=== PATIENT | female | born 1950 | race Hispanic/Latino ===

== ENCOUNTER 2018-02-18 13:58 | Observation (INO) | payer BC, MEDICARE ==
[2018-02-18 13:58] VITALS: BMI 28.3
[2018-02-18] MEDS ORDERED: Sodium Chloride 0.9% 1,000 ML IV ONE (14:28)
--- NOTE | 2018-02-18 14:51 | ED PDOC ---
Arrival/HPI - General Chief Complaint: Dizziness/Lightheaded Time Seen by Provider: 02/18/18 14:15 Historian: Patient - History of Present Illness Narrative History of Present Illness (Text): 02/18/18 14:49 67yo female with PMHx of hypertension who present with complaint of positional dizziness since this morning. Notes that the dizziness is when she moves her head laterally. she denies previous history. Denies tinnitus, headache, URI symptoms, focal weakness, chest pain, visual changes, abdominal pain, any other complaint. Past Medical History - Provider Review Nursing Documentation Reviewed: Yes - Infectious Disease Hx of Infectious Diseases: None - Tetanus Immunization Tetanus Immunization: Unknown - Cardiac Hx Hypertension: Yes - Pulmonary Hx Respiratory Disorders: No - Neurological Hx Neurological Disorder: No - HEENT Hx HEENT Disorder: No - Renal Hx Renal Disorder: Yes (blockage in kidney opened by balloon) Hx Kidney Stones: Yes - Hematological/Oncological Hx Blood Transfusions: No - Musculoskeletal/Rheumatological Hx Musculoskeletal Disorders: No - Gastrointestinal Hx Constipation: Yes Hx Irritable Bowel: Yes - Genitourinary/Gynecological Hx Genitourinary Disorders: No - Psychiatric Hx Anxiety: Yes Hx Depression: Yes Hx Substance Use: No - Anesthesia Hx Anesthesia: Yes Hx Anesthesia Reactions: No Hx Malignant Hyperthermia: No - Suicidal Assessment Feels Threatened In Home Enviroment: No Family/Social History - Physician Review Nursing Documentation Reviewed: Yes Family/Social History: Unknown Family HX Smoking Status: Never Smoked Hx Alcohol Use: Yes (SOCIALLY) Frequency of alcohol use: Socially Hx Substance Use: No Allergies/Home Meds Allergies/Adverse Reactions: Allergies No Known Allergies Allergy (Verified 02/18/18 14:11) Home Medications: Home Meds Medication Instructions Recorded Confirmed Alprazolam [Xanax Xr] 0.5 mg PO HS 11/26/14 02/18/18 Amitriptyline Hydrochloride 100 mg PO HS 11/26/14 02/18/18 [Elavil] Furosemide [Lasix] 40 mg PO QAM 11/26/14 02/18/18 Lubiprostone [Amitiza] 24 mcg PO BID 11/26/14 02/18/18 Metoprolol Tartrate [Lopressor] 100 mg PO DAILY 11/26/14 02/18/18 NIFEdipine ER [Nifedipine ER] 120 mg PO QAM 11/26/14 02/18/18 Potassium Chloride [K-Dur 20] 20 meq PO QAM 11/26/14 02/18/18 buPROPion SR [Wellbutrin SR] 150 mg PO QAM 11/26/14 02/18/18 clonazePAM [clonAZEPAM] 0.5 mg PO PRN PRN 11/26/14 02/18/18 Atorvastatin [Lipitor] 10 mg PO DAILY 09/29/17 02/18/18 Ranitidine HCl [Zantac] 150 mg PO PRN PRN 09/29/17 02/18/18 Review of Systems - Physician Review All systems were reviewed & negative as marked: Yes - Review of Systems Constitutional: Normal Eyes: Normal ENT: Normal Respiratory: Normal Cardiovascular: Normal Gastrointestinal: Normal Genitourinary Female: Normal Musculoskeletal: Normal Skin: Normal Neurological: Dizziness. absent: Headache, Focal Weakness, Speech Changes, Facial Droop Endocrine: Normal Hemo/Lymphatic: Normal Psychiatric: Normal Physical Exam Vital Signs Reviewed: Yes Vital Signs Temp Pulse Resp BP Pulse Ox 02/18/18 18:05 72 18 122/78 99 02/18/18 15:58 78 18 122/78 98 02/18/18 14:05 98.7 F 79 18 106/70 98 Temperature: Afebrile Blood Pressure: Normal Pulse: Regular Respiratory Rate: Normal Appearance: Positive for: Well-Appearing, Non-Toxic, Comfortable Pain Distress: None Mental Status: Positive for: Alert and Oriented X 3 - Systems Exam Head: Present: Atraumatic, Normocephalic Pupils: Present: PERRL Extroacular Muscles: Present: EOMI Conjunctiva: Present: Normal Mouth: Present: Moist Mucous Membranes Neck: Present: Normal Range of Motion Respiratory/Chest: Present: Clear to Auscultation, Good Air Exchange. No: Respiratory Distress, Accessory Muscle Use Cardiovascular: Present: Regular Rate and Rhythm, Normal S1, S2. No: Murmurs Abdomen: No: Tenderness, Distention, Peritoneal Signs Back: Present: Normal Inspection Upper Extremity: Present: Normal Inspection. No: Cyanosis, Edema Lower Extremity: Present: Normal Inspection. No: Edema Neurological: Present: GCS=15, CN II-XII Intact, Speech Normal, Motor Func Grossly Intact, Normal Sensory Function, Normal Cerebellar Funct, Norm Deep Tendon Reflexes, Gait Normal, Memory Normal, Normal 2Pt Descrimination, Other ( No focal neurological deficit) Skin: Present: Warm, Dry, Normal Color. No: Rashes Psychiatric: Present: Alert, Oriented x 3, Normal Insight, Normal Concentration Medical Decision Making ED Course and Treatment: 02/18/18 18:38 PT present to ED for stated history. She was neurologically intact. she was not orthostatic. Lab was unremarkable. she was treated with Rocephin for UTI. She was hydrated in ED. PT continued to complain of dizziness after medication was given. Head CT - negative EKG NSR @72bpm. NSTEMI She was placed on OBS for further evaluation Result and plan was DW the pt and she agreed Case was ANN Harris and pt was placed on her service. - Lab Interpretations Lab Results: 02/18/18 14:30 02/18/18 14:30 Lab Results 02/18/18 15:55: Urine Color Yellow, Urine Appearance Clear, Urine pH 7.5, Ur Specific [place] 1.015, Urine Protein Negative, Urine Glucose (UA) Negative, Urine Ketones Negative, Urine Blood Negative, Urine Nitrate Negative, Urine Bilirubin Negative, Urine Urobilinogen 0.2, Ur Leukocyte Esterase Small H, Urine RBC Negative, Urine WBC 0 - 2, Ur Epithelial Cells None 02/18/18 14:30: Sodium 143, Potassium 4.3, Chloride 106, Carbon Dioxide 26, Anion Gap 15, BUN 15, Creatinine 0.8, Est GFR ( Amer) > 60, Est GFR (Non- Af Amer) > 60, Random Glucose 94, Calcium 9.3, Magnesium 2.2, Total Bilirubin 0.5, AST 26, ALT 41, Alkaline Phosphatase 46, Lactate Dehydrogenase 491, Total Creatine Kinase 100, Troponin I < 0.01, Total Protein 7.9, Albumin 4.4, Globulin 3.5, Albumin/Globulin Ratio 1.3 02/18/18 14:30: PT 11.1, INR 0.97, APTT 26.7 02/18/18 14:30: WBC 7.5, RBC 4.32, Hgb 12.8, Hct 39.2, MCV 90.7, MCH 29.6, MCHC 32.7, RDW 13.3, Plt Count 292, MPV 9.9, Gran % 54.4, Lymph % (Auto) 32.1, [place] % (Auto) 10.9 H, Eos % (Auto) 2.3, Baso % (Auto) 0.3, Gran # 4.08, Lymph # (Auto ) 2.4, [place] # (Auto) 0.8 H, Eos # (Auto) 0.2, Baso # (Auto) 0.02 - RAD Interpretation Radiology Orders: 02/18/18 14:27 HEAD W/O CONTRAST [CT] Stat - Medication Orders Current Medication Orders: Sodium Chloride (Sodium Chloride 0.9%) 1,000 mls @ 100 mls/hr IV .Q10H STA Stop: 02/19/18 02:54 Last Admin: 02/18/18 17:42 Dose: 100 mls/hr eMAR Start Stop Document 02/18/18 17:42 EWO (Rec: 02/18/18 17:42 [facility] [id number]) Intravenous Solution Start Date 02/18/18 Start Time 17:42 Meclizine HCl (Antivert) 25 mg PO STAT PRN PRN Reason: Dizziness Stop: 02/18/18 23:50 Discontinued Medications Sodium Chloride (Sodium Chloride 0.9%) 1,000 mls @ 250 mls/hr IV .Q4H ONE Stop: 02/18/18 18:27 Last Admin: 02/18/18 14:49 Dose: 250 mls/hr eMAR Start Stop Document 02/18/18 14:49 EWO (Rec: 02/18/18 14:49 [facility] [id number]) Intravenous Solution Start Date 02/18/18 Start Time 14:49 End Date 02/18/18 Ceftriaxone Sodium (Rocephin 1 Gram Ivpb) 1 gm in 100 mls @ 200 mls/hr IVPB STAT STA PRN Reason: Protocol Stop: 02/18/18 17:20 Last Admin: 02/18/18 17:41 Dose: 200 mls/hr eMAR Start Stop Document 02/18/18 17:41 EWO (Rec: 02/18/18 17:42 [facility] [id number]) Intravenous Solution Start Date 02/18/18 Start Time 17:42 End Date 02/18/18 End time 18:12 Total Infusion Time 30 Meclizine HCl (Antivert) 25 mg PO STAT STA Stop: 02/18/18 14:29 Last Admin: 02/18/18 14:49 Dose: 25 mg Disposition/Present on Arrival - Present on Arrival Any Indicators Present on Arrival: No History of DVT/PE: No History of Uncontrolled Diabetes: No Urinary Catheter: No History of Decub. Ulcer: No History Surgical Site Infection Following: None - Disposition Have Diagnosis and Disposition been Completed?: Yes Diagnosis: UTI (urinary tract infection), Near syncope Disposition: HOSPITALIZED Disposition Time: 16:25 Patient Plan: Admission Patient Problems: Current Active Problems Problem Status Onset Near syncope Acute UTI (urinary tract infection) Acute Condition: FAIR
[2018-02-18 14:55] LABS: ALB/GLOB RATIO 1.3 (1.1-1.8); ALBUMIN 4.4 g/dL (3.0-4.8); ALT/SGPT 41 U/L (7-56); AST/SGOT 26 U/L (14-36); BLOOD UREA NITROGEN 15 mg/dL (7-21); CALCIUM 9.3 mg/dL (8.4-10.5); GFR AFRICAN-AMERICAN > 60; GFR NON-AFRICAN AMERICAN > 60
[2018-02-18 15:02] LABS: BASO # 0.02 K/mm3 (0.0-2.0); BASO % 0.3 % (0.0-3.0); EOS # 0.2 (0.0-0.7); EOS % 2.3 % (1.5-5.0); GRAN # 4.08 (1.4-6.5); GRAN % 54.4 % (50.0-68.0); HEMOGLOBIN 12.8 g/dL (12.0-16.0); LYMPH # 2.4 (1.2-3.4); LYMPH % 32.1 % (22.0-35.0); MEAN CELL VOLUME 90.7 fl (80.0-105.0); MEAN CORPUSCULAR HEMOGLOBIN 29.6 pg (25.0-35.0); MEAN CORPUSCULAR HGB CONC 32.7 g/dl (31.0-37.0); MEAN PLATELET VOLUME 9.9 fl (7.0-11.0); MONO # 0.8 (0.1-0.6); MONO % 10.9 % (1.0-6.0); RBC 4.32 10^6/uL (3.5-6.1); RED CELL DISTRIBUTION WIDTH 13.3 % (11.5-14.5); WHITE BLOOD COUNT 7.5 10^3/ul (4.5-11.0)
[2018-02-18 15:09] LABS: TROPONIN I < 0.01 ng/mL
[2018-02-18 15:22] LABS: INR 0.97 (0.93-1.08); PARTIAL THROMBOPLASTIN TIME 26.7 Seconds (25.1-36.5); PROTHROMBIN TIME 11.1 SECONDS (9.4-12.5)
--- NOTE | 2018-02-18 15:22 | CT ---
PROCEDURE: CT HEAD WITHOUT CONTRAST. HISTORY: dizziness COMPARISON: None available. TECHNIQUE: Axial computed tomography images were obtained through the head/brain without intravenous contrast. Radiation dose: Total exam DLP = 915.15 mGy-cm. This CT exam was performed using one or more of the following dose reduction techniques: Automated exposure control, adjustment of the mA and/or kV according to patient size, and/or use of iterative reconstruction technique. FINDINGS: HEMORRHAGE: No intracranial hemorrhage. BRAIN: No mass effect or edema. Cortical atrophy, periventricular small vessel disease. This is asymmetric more prominent posterior horn left lateral ventricle compared to right. VENTRICLES: Unremarkable. No hydrocephalus. CALVARIUM: Unremarkable. PARANASAL SINUSES: Chronic ethmoid air cell disease. MASTOID AIR CELLS: Unremarkable as visualized. No inflammatory changes. OTHER FINDINGS: None. IMPRESSION: Cortical atrophy, mild although it is asymmetric as described above
[2018-02-18 16:04] LABS: PH,URINE 7.5 (4.7-8.0); URINE BILIRUBIN NEGATIVE (NEGATIVE); URINE BLOOD NEGATIVE (NEGATIVE); URINE GLUCOSE (UA) NEGATIVE (NEGATIVE); URINE LEUKOCYTE ESTERASE SMALL Leu/uL (NEGATIVE); URINE PROTEIN NEGATIVE mg/dL (<30 mg/dL); URINE UROBILINOGEN 0.2 E.U./dL (<1 E.U./dL)
[2018-02-18 16:05] LABS: URINE APPEARANCE CLEAR (CLEAR); URINE COLOR YELLOW (YELLOW)
[2018-02-18 16:22] LABS: URINE RBC NEGATIVE /hpf (0-2); URINE WBC 0 - 2 /hpf (0-6)
[2018-02-18] MEDS ORDERED: cefTRIAXone 1 gm 1 GM/100 ML BAG IVPB STA (16:51)
[2018-02-18] MEDS ORDERED: Sodium Chloride 0.9% 1,000 ML IV STA (16:55)
[2018-02-19] MEDS: Potassium Chloride 20 mEq ER Tab PO SCH (07:51)
[2018-02-19] MEDS ORDERED: buPROPion SR 150 MG TABLET PO SCH (10:00)
[2018-02-19] MEDS: Furosemide 40 mg/5 mL Oral Soln UD PO SCH (10:19)
[2018-02-19] MEDS: NIFEdipine 60 mg ER Tab PO SCH (10:20)
[2018-02-19] MEDS ORDERED: buPROPion 150 mg/24 Hours XL Tab PO ONE (10:30)
--- NOTE | 2018-02-19 12:46 | CARD ---
APPROVED REPORT EKG Measurement Heart [id number] <Conclusion> Normal sinus rhythm
[2018-02-19] MEDS ORDERED: Dexamethasone 2 MG in Sodium Chloride 0.9% 50 ML IV ONE (15:02)
--- NOTE | 2018-02-19 15:35 | CON ---
DATE: 02/19/2018 NEUROLOGY CONSULT CHIEF COMPLAINT: Dizziness. HISTORY OF PRESENT ILLNESS: A 67-year-old woman with history of hypertension, history of anxiety, depression as well as chronic back pain, on amitriptyline and Wellbutrin for depression and Klonopin for anxiety, who presents because she notes she had been dizzy when she moves her head laterally in the right and left direction as well as getting up from a lying position and felt like she nausea and felt spinning sensation of the room. She did not lose any consciousness. No focal weakness or paresthesias of the extremities. Currently, her symptoms are much improved with meclizine and was given Valium. No neurological focal findings are seen on exam. Slight mild nystagmus, otherwise normal. CAT scan of the head showed no acute intracranial abnormality. PAST MEDICAL HISTORY: Anxiety, depression, hypertension. REVIEW OF SYSTEMS: Fourteen-point review of systems negative except as per in the HPI. FAMILY HISTORY: Noncontributory. SOCIAL HISTORY: No illicit drug use, smoking or EtOH abuse. ALLERGIES: NO KNOWN DRUG ALLERGIES. MEDICATIONS: Reviewed by nurse reconciliation sheet. LABORATORY DATA: Sodium is 143, potassium 4.3, chloride 106, carbon dioxide 26, BUN of 15, creatinine 0.8, random glucose 94. PHYSICAL EXAMINATION: VITAL SIGNS: Temperature 97.9, pulse rate 77, blood pressure 129/80, respiratory rate of 18. GENERAL: The patient is sitting up in bed, in no acute distress. HEENT: Atraumatic, normocephalic. PERRLA. Extraocular muscles intact. NECK: Supple. No JVD. No adenopathy noted. LUNGS: Clear to auscultation. No adventitious sounds. HEART: S1, S2. Normal rate and rhythm. No murmurs, rubs or gallops. ABDOMEN: Soft, nontender and nondistended. Bowel sounds are present. EXTREMITIES: No clubbing. No cyanosis. Peripheral pulses 2+ felt bilaterally. NEUROLOGIC: The patient is alert and oriented to person, place, month and year. Speech is fluent without any errors. Cranial nerves II through XII intact. Motor exam: Moves all extremities equally. Toes are downgoing bilaterally. Sensory exam: Light touch, pinprick, proprioception and vibration are intact. DTRs are 2+ throughout. Coordination: [id number] intact. No dysmetria noted. Romberg's negative. Gait is wide based, otherwise normal. ASSESSMENT AND PLAN: This is a 67-year-old woman with history of hypertension, chronic back pain, anxiety, depression, presented with sudden onset of dizziness and started spinning sensation of the room and feeling off balance and constantly motion. Neurologic exam is nonfocal. CAT scan of the head showed no acute intracranial abnormality. At this time, I felt like her symptom is secondary to a positional vertigo, paroxysmal. At this time, I would recommend, 1. One dose of dexamethasone 2 mg x1 dose antiinflammatory response. 2. Continue meclizine 25 mg p.o. t.i.d. 3. Solid restriction diet. 4. Vestibular therapy as an outpatient. She is clinically stable from my standpoint. El Hunt MD
--- NOTE | 2018-02-20 05:02 | HP ---
DATE OF EXAM: 02/19/2018 HISTORY OF PRESENT ILLNESS: This 67-year-old female was examined at her bedside on the cardiac [facility] of the [facility]. She was admitted with dizziness. She was driving her car when she felt a dizzy sensation as well as nausea and if space she was in was spinning. She did not lose consciousness. She drove herself to the [facility] ER where she was evaluated for vertigo and admitted for further evaluation of the above. Her past medical history is significant for chronic hypertension, history of renal artery stenosis repair, anxiety, depression, chronic back pain and at present, the patient is lying in bed, feeling slightly dizzy especially when she moves her head laterally to the right or left. PAST MEDICAL HISTORY: As above. FAMILY HISTORY: Noncontributory. SOCIAL HISTORY: She is a nondrinker, nonsmoker, non IV drug misuser. ALLERGIES: NO KNOWN ALLERGIES TO MEDICATION. REVIEW OF SYSTEMS: HEAD REVIEW: As per HPI. EYE REVIEW: No change in visual acuity. EAR REVIEW: No hearing loss. THROAT REVIEW: No swallowing difficulty. NECK REVIEW: No stiffness. CARDIAC REVIEW: Chronic hypertension. PULMONARY: No cough. No hemoptysis. GI: She has a history of redundant colon. : Recent kidney stone. VASCULAR: No claudication. PSYCHOLOGIC: Anxiety and depression. NEUROLOGIC: No knowledge of stroke, recent paroxysmal vertigo. SKIN: No rash. No ulcerations. OUTPATIENT MEDICATIONS: Included Klonopin, Wellbutrin SR, Zantac, K-Dur, nifedipine ER, Lopressor Amitiza, Lasix, Lipitor, Elavil and Xanax p.r.n. PHYSICAL EXAMINATION: GENERAL: She is in a normal sinus rhythm on the operation research analyst. VITAL SIGNS: Temperature 97.9, respirations 18, pulse 77, blood pressure 129/83. HEENT: Head, normocephalic and atraumatic. Eyes, no icterus. Ears, clear. Throat, noninjected. NECK: Supple. HEART: Regular, S1 and S2. LUNGS: Clear. ABDOMEN: Soft. EXTREMITIES: No edema. SKIN: Without rash. NEUROLOGIC: Grossly intact. She has slight nystagmus on eye exam. VASCULAR: Legs warm to touch. LABORATORY DATA: White count 7500, hemoglobin 12.8, hematocrit 39.2, platelets 292,000. PT/INR 0.97, PTT 26.7. Sodium 143, K 4.3, chloride 106, bicarb 26, BUN 15, creatinine 0.8, random blood sugar 94. Magnesium 2.2. Bilirubin 0.5, AST 26, ALT 41, alk phos 46. CPK 100. Troponin less than 0.01. Urinalysis showed no red blood cells, small amount of leukocyte esterase. CT of the head was reviewed. It showed no evidence of infarct or brain hemorrhage. EKG was reviewed. It showed a normal sinus rhythm. IMPRESSION: A 67-year-old female with multiple medical problems as listed above, now admitted with dizziness, spinning sensation, feeling off balance consistent with positional vertigo, paroxysmal. PLAN: I am awaiting neurological consultation by Dr. El Hunt. The patient will continue on medications as outlined. She is ordered to receive meclizine 25 mg p.o. every 8 hours p.r.n. dizziness and will continue on her maintenance medications as outlined. I will order a T4 level for completeness sake. I am awaiting urine culture and all of the above was discussed in detail for greater than 75 minutes with the patient and nurse, Mackenzie Barajas, registered nurse. All questions were answered. Teresa Harris MD MTDKenneth
[2018-02-20 05:37] VITALS: O2SAT 96
[2018-02-20] MEDS: Potassium Chloride 20 mEq ER Tab PO SCH (07:34)
[2018-02-20] MEDS: NIFEdipine 60 mg ER Tab PO SCH (09:51)
[2018-02-20] MEDS: Furosemide 40 mg/5 mL Oral Soln UD PO SCH (09:51)
[2018-02-20] MEDS ORDERED: buPROPion 150 mg/24 Hours XL Tab PO SCH (10:00)
[2018-02-20 11:54] VITALS: RESP 18; TEMP 98
[2018-02-20 17:24] VITALS: BP 109/65; PULSE 78
--- NOTE | 2018-02-20 20:05 | DS ---
DATE OF EXAM; 02/20/2018 FINAL DIAGNOSES: Positional vertigo, chronic hypertension, anxiety neurosis, hyperlipidemia, history of renal artery stenosis, chronic depression, chronic anxiety, history of irritable bowel syndrome with constipation. DISPOSITION: Home. [employer] SETTER: Dr. El Hunt from Neurology. DISCHARGE MEDICATIONS: Antivert 25 mg p.o. t.i.d. p.r.n. vertigo, number 10, no refills; Xanax 0.5 mg p.o. at bedtime; Lipitor 10 mg p.o. daily; Lasix 40 mg p.o. daily; K-Dur 20 mEq p.o. daily; Lopressor 100 mg p.o. daily; Klonopin 0.5 mg p.o. at bedtime p.r.n. anxiety; Wellbutrin 150 mg p.o. a.m.; Zantac 150 mg p.o. at bedtime p.r.n. dyspepsia; nifedipine ER 120 mg p.o. daily; Amitiza 24 mcg p.o. b.i.d.; and Elavil 100 mg p.o. at bedtime. SUMMARY: This 67-year-old female was admitted to the [facility] after presenting with dizziness and near syncope while driving her car earlier on the day of admission. She was admitted to the cardiac unit. She was found to be in normal sinus rhythm. Vital signs were stable and a CAT scan of her head showed no acute pathology. The patient was clinically consistent with acute paroxysmal positional vertigo and was seen in consultation by Dr. El Hunt from Neurology who administered dexamethasone 2 mg IV x1 dose with excellent results. At the time of discharge, her temperature was 98, respirations 18, pulse 78, blood pressure 109/65, pulse ox 96% on room air. White count 7500, hemoglobin 12.8, hematocrit 39.2, platelets 292,000. Chemistry: Sodium 143, K 4.3, chloride 106, bicarb 26, BUN 15, creatinine 0.8, random blood sugar 94. Magnesium normal 2.2. All liver function testing was normal including bilirubin 0.5, AST 26, ALT 41, and alk phos 46 with CPK normal 110 and troponin less than 0.01 and T4 normal at 5.6. Patient is discharged to home and will continue her heart-healthy 2-g sodium, low cholesterol diet. She will be monitored in my office as an outpatient regarding all of the above and greater than 35 minutes was spent in the care management, review of labs, orders, x-rays, and outlining of discharge orders for this patient today. All questions were answered. Teresa Harris MD MTDD
== END 2018-02-20 18:40 | disposition home or self-care (01) ==
LOC: ED 13:58 → ERH 16:32 → 2RNO 18:07
PROVIDERS: ADMIT Internal Medicine; ATTEND Internal Medicine
DX: H81.10 Benign paroxysmal vertigo, unspecified ear (principal); N39.0 Urinary tract infection, site not specified; I10 Essential (primary) hypertension; F41.1 Generalized anxiety disorder; E78.5 Hyperlipidemia, unspecified; K58.1 Irritable bowel syndrome with constipation; R55 Syncope and collapse; G89.29 Other chronic pain
CPT/HCPCS: 36415; 70450; 80053; 81001; 82550; 83615; 83735; 84436; 84484; 85025; 85610; 85730; 87086; 93005; 96365; 96375; 99285; G0378; J0696; J1100; J7040

== ENCOUNTER 2018-03-12 17:29 | Emergency (ER) | payer BC, MEDICARE ==
[2018-03-12 17:29] VITALS: BMI 28.3
[2018-03-12 17:55] VITALS: RESP 18; TEMP 99.2
--- NOTE | 2018-03-12 18:23 | ED PDOC ---
Arrival/HPI - General Historian: Patient <Ellie Mckeon A - Last Filed: 03/12/18 22:47> <FilomenaFiorella higuera - Last Filed: 03/13/18 13:02> - General Chief Complaint: Lower Extremity Problem/Injury Time Seen by Provider: 03/12/18 17:31 - History of Present Illness Narrative History of Present Illness (Text): 03/12/18 18:20 67yo female with history of ulcerative colitis who present with complaint of b/ l knee pain and swelling. 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 States the swelling resolved yesterday with elevation of her knee, and became swollen again after ambulating today. States she have always had pain on her knee, but it became worse the past two days. States the left knee is localized to her posterior knee. she denies trauma, LE edema, calf pain, chest pain, SOB, diaphoresis, fever, redness, any other complaint. (Ellie Mckeon A) Past Medical History - Provider Review Nursing Documentation Reviewed: Yes - Infectious Disease Hx of Infectious Diseases: None - Tetanus Immunization Tetanus Immunization: Unknown - Reproductive Menopause: Yes - Cardiac Hx Cardiac Disorders: No Hx Hypertension: Yes - Pulmonary Hx Respiratory Disorders: No - Neurological Hx Neurological Disorder: No - HEENT Hx HEENT Disorder: No - Renal Hx Renal Disorder: Yes Hx Kidney Stones: Yes Other/Comment: L Acute kidney injury, L kidney stone sx, L kidney repair sx 1983 ; Rt Balloon angiography of kidney - Endocrine/Metabolic Hx Endocrine Disorders: No - Hematological/Oncological Hx Blood Disorders: No - Integumentary Hx Dermatological Disorder: No - Musculoskeletal/Rheumatological Hx Degenerative Joint Disease: Yes (spinal discs) Hx Falls: No - Gastrointestinal Hx Gastrointestinal Disorders: Yes Other/Comment: Redundant bowel, chronic constipation, needs low fiber diet - Genitourinary/Gynecological Hx Genitourinary Disorders: No - Psychiatric Hx Anxiety: Yes Hx Depression: Yes Hx Substance Use: No - Surgical History Other/Comment: L Kidney repair, L kidney stone removal, balloon angio rt kidney - Anesthesia Hx Anesthesia: Yes Hx Anesthesia Reactions: No Hx Malignant Hyperthermia: No - Suicidal Assessment Feels Threatened In Home Enviroment: No <Ellie Mckeon A - Last Filed: 03/12/18 22:47> Family/Social History - Physician Review Nursing Documentation Reviewed: Yes Family/Social History: Unknown Family HX Smoking Status: Never Smoked Hx Alcohol Use: Yes (social) Hx Substance Use: No <LindaEllie A - Last Filed: 03/12/18 22:47> Allergies/Home Meds <LindaHappiness A - Last Filed: 03/12/18 22:47> <Fiorella Butt - Last Filed: 03/13/18 13:02> Allergies/Adverse Reactions: Allergies No Known Allergies Allergy (Verified 02/18/18 14:11) Home Medications: Home Meds Medication Instructions Recorded Confirmed Alprazolam [Xanax Xr] 0.5 mg PO HS 11/26/14 03/12/18 Furosemide [Lasix] 40 mg PO QAM 11/26/14 03/12/18 NIFEdipine ER [Nifedipine ER] 120 mg PO QAM 11/26/14 03/12/18 buPROPion SR [Wellbutrin SR] 150 mg PO QAM 11/26/14 03/12/18 clonazePAM [clonAZEPAM] 0.5 mg PO PRN PRN 11/26/14 03/12/18 Atorvastatin [Lipitor] 10 mg PO DAILY 09/29/17 03/12/18 Amitriptyline [Elavil] 100 mg PO HS 03/12/18 03/12/18 Kdur 20 meq PO DAILY 03/12/18 03/12/18 Lubiprostone [Amitiza] 24 mcg PO BID 03/12/18 03/12/18 Metoprolol Tartrate [Lopressor] 100 mg PO BID 03/12/18 03/12/18 Ranitidine HCl [Zantac] 150 mg PO PRN 03/12/18 03/12/18 Review of Systems - Physician Review All systems were reviewed & negative as marked: Yes - Review of Systems Constitutional: Normal Eyes: Normal ENT: Normal Respiratory: Normal Cardiovascular: Normal Gastrointestinal: Normal Genitourinary Female: Normal Musculoskeletal: Arthralgias (B/L knee) Skin: Normal Neurological: Normal Endocrine: Normal Hemo/Lymphatic: Normal Psychiatric: Normal <LindaHappiness A - Last Filed: 03/12/18 22:47> Physical Exam Vital Signs Reviewed: Yes Temperature: Afebrile Blood Pressure: Normal Pulse: Regular Respiratory Rate: Normal Appearance: Positive for: Well-Appearing, Non-Toxic, Comfortable Pain Distress: None Mental Status: Positive for: Alert and Oriented X 3 - Systems Exam Head: Present: Atraumatic, Normocephalic Pupils: Present: PERRL Extroacular Muscles: Present: EOMI Conjunctiva: Present: Normal Mouth: Present: Moist Mucous Membranes Neck: Present: Normal Range of Motion Respiratory/Chest: Present: Clear to Auscultation, Good Air Exchange. No: Respiratory Distress, Accessory Muscle Use Cardiovascular: Present: Regular Rate and Rhythm, Normal S1, S2. No: Murmurs Abdomen: No: Tenderness, Distention, Peritoneal Signs Back: Present: Normal Inspection Upper Extremity: Present: Normal Inspection. No: Cyanosis, Edema Lower Extremity: Present: NORMAL PULSES, Normal ROM, Tenderness (Left posterior knee), Swelling (B/L knee), Neurovascularly Intact. No: Edema, CALF TENDERNESS , Maru's Sign, Erythema, Deformity, Temperature Abnormalties Neurological: Present: GCS=15, CN II-XII Intact, Speech Normal Skin: Present: Warm, Dry, Normal Color. No: Rashes Psychiatric: Present: Alert, Oriented x 3, Normal Insight, Normal Concentration <Ellie Mckeon A - Last Filed: 03/12/18 22:47> Vital Signs Temp Pulse Resp BP Pulse Ox 03/12/18 19:32 72 18 107/68 99 03/12/18 17:43 99.2 F 81 18 101/67 97 Medical Decision Making <Ellie Mckeon A - Last Filed: 03/12/18 22:47> <Fiorella Butt - Last Filed: 03/13/18 13:02> ED Course and Treatment: 03/12/18 19:09 PT in ED for stated history. She is ambulatory in ED with steady gait. B/L knee xray - DJD. No acute fracture/dislocation PEr US tech - Doppler is negative b/l Result was DW the pt. Advised to keep knee elevated and use knee brace with ambulation. Rx of Tramadol given. Referred to ortho (Ellie Mckeon A) - RAD Interpretation Radiology Orders: 03/12/18 17:53 DUPLEX LOWER EXTRM VEIN BILAT [US] Stat 03/12/18 17:54 KNEE W PATELLA BILAT 3 VIEW [RAD] Stat - Medication Orders Current Medication Orders: Discontinued Medications Tramadol HCl (Ultram) 50 mg PO STAT STA Stop: 03/12/18 18:43 Last Admin: 03/12/18 19:11 Dose: 50 mg MAR Pain Assessment Document 03/12/18 19:11 EQ (Rec: 03/12/18 19:11 EQ [id number]) Pain Reassessment Is this a pain reassessment? No Sleep Is patient sleeping during reassessment? No Presence of Pain Presence of Pain Yes - PA / [employer]ER / Resident Statement MD/DO has reviewed & agrees with the documentation as recorded. <Fiorella Butt - Last Filed: 03/13/18 13:02> Disposition/Present on Arrival - Present on Arrival Any Indicators Present on Arrival: No History of DVT/PE: No History of Uncontrolled Diabetes: No Urinary Catheter: No History of Decub. Ulcer: No History Surgical Site Infection Following: None - Disposition Have Diagnosis and Disposition been Completed?: Yes Disposition Time: 18:45 Patient Plan: Discharge <Ellie Mckeon - Last Filed: 03/12/18 22:47> <Fiorella Butt - Last Filed: 03/13/18 13:02> - Disposition Diagnosis: Knee pain, bilateral Disposition: HOME/ ROUTINE Condition: STABLE Discharge Instructions (ExitCare): Chronic Knee Pain Additional Instructions: Follow up with Orthopedist Return to ED for any new symptoms Prescriptions: traMADol [Ultram] 50 mg PO TID #9 tab Referrals: Noelle Alexander MD [Staff Provider] - Follow up with primary Forms: [employer] ([place])
[2018-03-12 20:14] VITALS: BP 107/68; PULSE 72; O2SAT 99
--- NOTE | 2018-03-13 07:20 | RAD ---
PROCEDURE: Bilateral Knee Radiographs. HISTORY: Pain. No history of recent/ related trauma provided COMPARISON: None. FINDINGS: BONES: Right Knee: Normal. No fracture. Left Knee: No acute fracture. Proliferative hypertrophic changes emanating from the femoral condyle and tibial plateau regions. JOINTS: Right Knee: Mild medial compartment Left knee: Narrowing moderate medial compartment narrowing SOFT TISSUES: Right Knee: Normal. Left Knee: Normal. JOINT EFFUSION: Right Knee: None. Left Knee: None. OTHER FINDINGS: None. IMPRESSION: No acute findings related to/accounting for the clinical presentation.
--- NOTE | 2018-03-13 08:00 | US ---
HISTORY: Leg pain and swelling. Evaluate for DVT PHYSICIAN(S): Dillan Vergara MD. TECHNIQUE: Duplex sonography and color-flow Doppler with graded compression were used to evaluate the deep venous systems of both lower extremities. FINDINGS: The visualized deep venous systems of both lower extremities are sonographically normal and compressible. Normal wave forms and augmentation are seen. There is no sonographic evidence for deep venous thrombosis in the visualized segments of both lower extremities. IMPRESSION: No sonographic evidence for deep venous thrombosis in the visualized segments of both lower extremities.
== END 2018-03-12 20:11 | disposition home or self-care (01) ==
LOC: ED 17:29
DX: M25.562 Pain in left knee (principal); M25.561 Pain in right knee; I10 Essential (primary) hypertension

== ENCOUNTER 2018-04-22 10:08 | Day surgery (SDC) | payer BC, MEDICARE ==
[2018-04-15 09:20] VITALS: BMI 27.6
[2018-04-22] MEDS ORDERED: Propofol 10 mg/ml Inj (20 ML) ONE (14:20)
[2018-04-22] MEDS ORDERED: Sodium Chloride 0.9% 1,000 ML IV SCH (15:15)
[2018-04-22 16:00] VITALS: PULSE 72; RESP 18; TEMP 97.6; O2SAT 96
[2018-04-22 18:36] VITALS: BP 108/70
== END 2018-04-22 17:40 | disposition home or self-care (01) ==
LOC: ENDO 10:08
PROVIDERS: ATTEND Internal Medicine Gastroenterology
DX: D12.2 Benign neoplasm of ascending colon (principal); K59.00 Constipation, unspecified; K57.30 Diverticulosis of large intestine without perforation or abscess without bleeding; K64.8 Other hemorrhoids; I10 Essential (primary) hypertension; F32.89 Other specified depressive episodes; F41.9 Anxiety disorder, unspecified
CPT/HCPCS: 45380; 88305; J2001; J2704; J7030; J7040